=== PATIENT | male | born 1935 | race Caucasian/White ===

== ENCOUNTER 2017-11-09 17:15 | Inpatient (IN) ==
[2017-11-09 18:05] LABS: Basophils % 0.2 % (0.0-0.8); Eosinophils % 0.1 % (0.00-10.9); Hematocrit 30.3 VOL% (42.0-52.0); Hemoglobin 10.1 GM/DL (14.0-18.0); Immature Granulocytes % 0.8 %; Immature Granulocytes Absolute 0.17 #; Lymphocytes # 2.7 10*3/uL (1.4-4.0); Lymphocytes % 12.8 % (21.2-54.2); Mean Corpuscular HGB Conc 33.3 GM/DL (32-36); Mean Corpuscular Hemoglobin 30 PG (27-34); Mean Corpuscular Volume 89.1 FL (87-102); Monocytes # 1.5 10*3/uL (0.11-0.8); Monocytes % 6.9 % (1.7-12.7); Neutrophils # 16.8 10*3/uL (1.4-7.4); Neutrophils % 79.2 % (38.7-73.9); Platelet Count 294 T/CUMM (130-400); White Blood Count 21.1 T/CUMM (4-12)
[2017-11-09 18:15] LABS: PT Patient Result 10.6 SECS; Partial Thromboplastin Time 27.5 SECS (0-40)
[2017-11-09 18:34] LABS: Lymphocytes 8 % (20-55); Platelet Estimate Normal; Segmented Neutrophils 88 % (50-85); Total Cells Counted 100
[2017-11-09 18:35] LABS: Hypochromasia Slight
[2017-11-09 18:39] LABS: Alanine Aminotransferase 9 U/L (16-61); Albumin 2.7 G/DL (3.4-5.0); Alkaline Phosphatase 52 U/L (45-117); Aspartate Amino Transferase 6 U/L (0-37); Bilirubin,Total < 0.39 MG/DL (0.2-1.0); Blood Urea Nitrogen 25 MG/DL (7-18); Calcium 7.6 MG/DL (8.5-10.1); Glucose 179 MG/DL (74-106); Magnesium 2.1 MG/DL (1.8-2.4); Osmolality,Calculated 288.3 MOS/KG (273-304); Potassium 4.2 MMOL/L (3.5-5.1); Sodium 141 MMOL/L (136-145)
[2017-11-09] MEDS ORDERED: ONDANSETRON 4 MG/2 ML VIAL ONE (19:09)
[2017-11-09] MEDS ORDERED: ONDANSETRON 4 MG/2 ML VIAL IV STA (19:31)
[2017-11-09] MEDS ORDERED: ONDANSETRON 4 MG/2 ML VIAL IV PRN (19:34)
[2017-11-09] MEDS ORDERED: ALBUTEROL 2.5 MG/3 ML NEB RESP TX PRN (19:34)
[2017-11-09] MEDS ORDERED: SODIUM CHLORIDE 0.9% 1,000 ML IV PRN (19:34)
[2017-11-09] MEDS: PANTOPRAZOLE 40 MG VIAL IV SCH (22:01)
[2017-11-09 22:25] LABS: Hemoglobin 9.4 GM/DL (14.0-18.0)
[2017-11-09 23:51] LABS: Hemoglobin 8.8 GM/DL (14.0-18.0)
[2017-11-10] MEDS: ACETAMINOPHEN 325 MG TABLET PO PRN ×2 (04:53→18:22)
[2017-11-10 06:07] LABS: Basophils % 0.1 % (0.0-0.8); Hematocrit 23.6 VOL% (42.0-52.0); Immature Granulocytes % 0.7 %; Immature Granulocytes Absolute 0.09 #; Lymphocytes # 3.1 10*3/uL (1.4-4.0); Lymphocytes % 22.4 % (21.2-54.2); Mean Corpuscular HGB Conc 33.9 GM/DL (32-36); Mean Corpuscular Hemoglobin 30 PG (27-34); Mean Corpuscular Volume 88.4 FL (87-102); Mean Platelet Volume 11.3 FL (9.6-12.0); Monocytes # 1.3 10*3/uL (0.11-0.8); Monocytes % 9.7 % (1.7-12.7); Neutrophils # 9.3 10*3/uL (1.4-7.4); Neutrophils % 67.1 % (38.7-73.9); Platelet Count 238 T/CUMM (130-400); Red Blood Count 2.67 MC/CUMM (3.8-5.5); Red Cell Distribution Width 13.2 % (9.3-17.3); White Blood Count 13.8 T/CUMM (4-12)
[2017-11-10 07:02] LABS: Calcium 7.8 MG/DL (8.5-10.1); Osmolality,Calculated 291.1 MOS/KG (273-304)
[2017-11-10] MEDS ORDERED: SODIUM CHLORIDE 0.9% 1,000 ML IV ONE (08:12)
[2017-11-10 08:20] LABS: Hematocrit 22.6 VOL% (42.0-52.0); Hemoglobin 7.6 GM/DL (14.0-18.0)
[2017-11-10] MEDS: PANTOPRAZOLE 40 MG VIAL IV SCH ×2 (09:55→22:51)
[2017-11-10] MEDS ORDERED: ALUMINUM/MAGNES/SIMETH MAX STR 30 ML UDCUP PO ONE (10:07)
[2017-11-10] MEDS: TAMSULOSIN 0.4 MG CAPSULE PO SCH (13:02)
[2017-11-10] MEDS: amLODIPine 10 MG TABLET PO SCH (13:02)
[2017-11-10] MEDS: METOPROLOL TARTRATE 100 MG TABLET PO SCH ×2 (13:02→21:09)
[2017-11-10] MEDS: amLODIPine 5 MG TABLET PO SCH (16:50)
[2017-11-10 18:21] LABS: Apearance,Urine CLEAR (Clear); Bilirubin,Urine Negative (Negative); Blood, Urine Negative (Negative); Glucose,Urine (UA) Negative (Negative); Hyaline Casts,Urine 1 /LPF (0-3); Ketones,Urine Negative (Negative); Mucus,Urine Occasional /LPF (Occasional); Nitrite,Urine Negative (Negative); Protein,Urine Negative; RBC,Urine <1 /HPF (0-4); Squamous Epithelial Cell,Urine Occasional /HPF (0-10); Urine Color Yellow (Yellow); Urine Specific Gravity 1.014 (1.001-1.035); Urine Urobilinogen < 2.0 EU/DL (0.2-1.0); WBC,Urine 1 /HPF (0-6)
[2017-11-10 18:35] LABS: Hemoglobin 8.7 GM/DL (14.0-18.0)
[2017-11-10] MEDS: BRIMONIDINE/TIMOLOL OPH SOLN 5 ML BOTTLE RIGHT EYE SCH (21:09)
[2017-11-10] MEDS: ZALEPLON 5 MG CAPSULE PO SCH (21:09)
[2017-11-10] MEDS: PRAVASTATIN 20 MG TABLET PO SCH (21:09)
[2017-11-11 03:49] LABS: Calcium 7.6 MG/DL (8.5-10.1); Magnesium 2.1 MG/DL (1.8-2.4); Potassium 4.5 MMOL/L (3.5-5.1)
[2017-11-11 04:13] LABS: Basophils % 0.3 % (0.0-0.8); Eosinophils # 0.1 10*3/uL (0.0-0.87); Eosinophils % 0.7 % (0.00-10.9); Hematocrit 25.1 VOL% (42.0-52.0); Hemoglobin 8.2 GM/DL (14.0-18.0); Immature Granulocytes % 0.5 %; Immature Granulocytes Absolute 0.05 #; Lymphocytes # 2.5 10*3/uL (1.4-4.0); Lymphocytes % 24.4 % (21.2-54.2); Mean Corpuscular HGB Conc 32.7 GM/DL (32-36); Mean Corpuscular Hemoglobin 29 PG (27-34); Mean Corpuscular Volume 89.6 FL (87-102); Mean Platelet Volume 10.8 FL (9.6-12.0); Monocytes # 1.3 10*3/uL (0.11-0.8); Monocytes % 12.9 % (1.7-12.7); Neutrophils # 6.2 10*3/uL (1.4-7.4); Neutrophils % 61.2 % (38.7-73.9); Platelet Count 164 T/CUMM (130-400); White Blood Count 10.1 T/CUMM (4-12)
[2017-11-11] MEDS ORDERED: INFLUENZA VIRUS VACCINE 0.5 ML SYRINGE IM ONE (07:00)
[2017-11-11] MEDS: PANTOPRAZOLE 40 MG VIAL IV SCH (09:12)
[2017-11-11] MEDS: TAMSULOSIN 0.4 MG CAPSULE PO SCH (09:16)
[2017-11-11] MEDS: BRIMONIDINE/TIMOLOL OPH SOLN 5 ML BOTTLE RIGHT EYE SCH ×2 (09:16→21:40)
[2017-11-11] MEDS: METOPROLOL TARTRATE 100 MG TABLET PO SCH ×2 (09:16→21:40)
[2017-11-11] MEDS: amLODIPine 10 MG TABLET PO SCH (09:17)
[2017-11-11] MEDS ORDERED: MIDAZOLAM 2 MG/2 ML VIAL ONE (10:50)
[2017-11-11] MEDS ORDERED: fentaNYL 100 MCG/2 ML VIAL ONE (10:50)
[2017-11-11] MEDS ORDERED: SEVOFLURANE 1 UNIT/15 MINUTE INH ONE (10:56)
[2017-11-11] MEDS ORDERED: SUCCINYLCHOLINE 200 MG/10 ML VIAL ONE (10:56)
[2017-11-11] MEDS ORDERED: PROPOFOL 200 MG/20 ML VIAL IV ONE (10:56)
[2017-11-11] MEDS ORDERED: GLUCAGON 1 MG VIAL IM PRN (11:01)
[2017-11-11] MEDS ORDERED: DEXTROSE 50% 25 GM/50 ML VIAL IV PRN (11:01)
[2017-11-11] MEDS: BISACODYL 5 MG TABLET PO SCH ×2 (12:08→18:23)
[2017-11-11] MEDS ORDERED: PHENOL 1.4% THROAT SPRAY 177 ML BOTTLE PO PRN (14:31)
[2017-11-11] MEDS: amLODIPine 5 MG TABLET PO SCH (16:12)
[2017-11-11] MEDS ORDERED: POLYETHYLENE GLYCOL POWDER 255 GM BOTTLE PO ONE (18:00)
[2017-11-11] MEDS ORDERED: METOPROLOL TARTRATE 5 MG/5 ML VIAL IV ONE (20:11)
[2017-11-11] MEDS ORDERED: MAGNESIUM CITRATE 300 ML BOTTLE PO ONE (21:00)
[2017-11-11] MEDS: PRAVASTATIN 20 MG TABLET PO SCH (21:40)
[2017-11-11] MEDS: ZALEPLON 5 MG CAPSULE PO SCH (21:40)
[2017-11-12] MEDS: BISACODYL 5 MG TABLET PO SCH (03:59)
[2017-11-12] MEDS ORDERED: BISACODYL 5 MG TABLET PO SCH (04:00)
[2017-11-12 08:42] LABS: Calcium 8.5 MG/DL (8.5-10.1); Magnesium 2.3 MG/DL (1.8-2.4); Osmolality,Calculated 286.8 MOS/KG (273-304); Potassium 3.8 MMOL/L (3.5-5.1)
[2017-11-12] MEDS ORDERED: PROPOFOL 200 MG/20 ML VIAL IV ONE (10:05)
[2017-11-12] MEDS ORDERED: LIDOCAINE 2% 5 ML VIAL ONE (10:05)
[2017-11-12] MEDS: TAMSULOSIN 0.4 MG CAPSULE PO SCH (10:35)
[2017-11-12] MEDS: amLODIPine 10 MG TABLET PO SCH (10:35)
[2017-11-12] MEDS: BRIMONIDINE/TIMOLOL OPH SOLN 5 ML BOTTLE RIGHT EYE SCH ×2 (10:35→21:52)
[2017-11-12] MEDS: METOPROLOL TARTRATE 100 MG TABLET PO SCH ×2 (10:35→21:50)
[2017-11-12 15:05] LABS: Hemoglobin 9.7 GM/DL (14.0-18.0)
[2017-11-12] MEDS: PANTOPRAZOLE 40 MG TABLET PO SCH (15:20)
[2017-11-12] MEDS: amLODIPine 5 MG TABLET PO SCH (15:48)
[2017-11-12] MEDS: ACETAMINOPHEN 325 MG TABLET PO PRN (18:34)
[2017-11-12] MEDS: PRAVASTATIN 20 MG TABLET PO SCH (21:50)
[2017-11-12] MEDS: ZALEPLON 5 MG CAPSULE PO SCH (21:50)
[2017-11-12] MEDS: AMOXICILLIN 500 MG CAPSULE PO SCH (21:50)
[2017-11-12] MEDS: CLARITHROMYCIN 500 MG TABLET PO SCH (21:50)
[2017-11-13 04:29] LABS: Basophils % 0.3 % (0.0-0.8); Eosinophils # 0.1 10*3/uL (0.0-0.87); Eosinophils % 1.2 % (0.00-10.9); Hematocrit 24.5 VOL% (42.0-52.0); Hemoglobin 8.4 GM/DL (14.0-18.0); Immature Granulocytes % 0.5 %; Immature Granulocytes Absolute 0.04 #; Lymphocytes # 1.4 10*3/uL (1.4-4.0); Lymphocytes % 19.1 % (21.2-54.2); Mean Corpuscular HGB Conc 34.3 GM/DL (32-36); Mean Corpuscular Hemoglobin 30 PG (27-34); Mean Corpuscular Volume 88.4 FL (87-102); Mean Platelet Volume 10.9 FL (9.6-12.0); Monocytes % 13.4 % (1.7-12.7); Neutrophils # 4.9 10*3/uL (1.4-7.4); Neutrophils % 65.5 % (38.7-73.9); Platelet Count 184 T/CUMM (130-400); Red Blood Count 2.77 MC/CUMM (3.8-5.5); Red Cell Distribution Width 14.2 % (9.3-17.3); White Blood Count 7.5 T/CUMM (4-12)
[2017-11-13] MEDS ORDERED: SODIUM CHLORIDE 0.9% 1,000 ML IV PRN ×2 (07:14→08:11)
[2017-11-13] MEDS ORDERED: FUROSEMIDE 20 MG/2 ML VIAL IV PRN (07:14)
[2017-11-13] MEDS: CLARITHROMYCIN 500 MG TABLET PO SCH ×2 (09:26→20:14)
[2017-11-13] MEDS: AMOXICILLIN 500 MG CAPSULE PO SCH ×2 (09:26→20:14)
[2017-11-13] MEDS: METOPROLOL TARTRATE 100 MG TABLET PO SCH ×2 (09:26→20:14)
[2017-11-13] MEDS: amLODIPine 10 MG TABLET PO SCH (09:27)
[2017-11-13] MEDS: PANTOPRAZOLE 40 MG TABLET PO SCH (09:27)
[2017-11-13] MEDS: TAMSULOSIN 0.4 MG CAPSULE PO SCH (09:27)
[2017-11-13] MEDS: BRIMONIDINE/TIMOLOL OPH SOLN 5 ML BOTTLE RIGHT EYE SCH ×2 (09:27→20:16)
[2017-11-13] MEDS: amLODIPine 5 MG TABLET PO SCH (15:49)
[2017-11-13 19:07] LABS: Hematocrit 34.9 VOL% (42.0-52.0); Hemoglobin 11.3 GM/DL (14.0-18.0)
[2017-11-13] MEDS: ZALEPLON 5 MG CAPSULE PO SCH (20:13)
[2017-11-13] MEDS: PRAVASTATIN 20 MG TABLET PO SCH (20:14)
[2017-11-14 06:21] LABS: Basophils % 0.1 % (0.0-0.8); Eosinophils # 0.1 10*3/uL (0.0-0.87); Eosinophils % 1.7 % (0.00-10.9); Hematocrit 31.1 VOL% (42.0-52.0); Hemoglobin 10.4 GM/DL (14.0-18.0); Immature Granulocytes % 0.4 %; Immature Granulocytes Absolute 0.03 #; Lymphocytes # 1.4 10*3/uL (1.4-4.0); Lymphocytes % 18.4 % (21.2-54.2); Mean Corpuscular HGB Conc 33.4 GM/DL (32-36); Mean Corpuscular Hemoglobin 29 PG (27-34); Mean Corpuscular Volume 86.9 FL (87-102); Mean Platelet Volume 11.1 FL (9.6-12.0); Neutrophils % 66.4 % (38.7-73.9); Platelet Count 212 T/CUMM (130-400); Red Blood Count 3.58 MC/CUMM (3.8-5.5); Red Cell Distribution Width 14.6 % (9.3-17.3); White Blood Count 7.5 T/CUMM (4-12)
[2017-11-14] MEDS: METOPROLOL TARTRATE 100 MG TABLET PO SCH (08:56)
[2017-11-14] MEDS: amLODIPine 10 MG TABLET PO SCH (08:56)
[2017-11-14] MEDS: CLARITHROMYCIN 500 MG TABLET PO SCH (08:56)
[2017-11-14] MEDS: TAMSULOSIN 0.4 MG CAPSULE PO SCH (08:56)
[2017-11-14] MEDS: BRIMONIDINE/TIMOLOL OPH SOLN 5 ML BOTTLE RIGHT EYE SCH (08:56)
[2017-11-14] MEDS: PANTOPRAZOLE 40 MG TABLET PO SCH (08:56)
[2017-11-14] MEDS: AMOXICILLIN 500 MG CAPSULE PO SCH (08:56)
[2017-11-14 12:29] VITALS: BP 122/56
== END 2017-11-14 12:55 | disposition home or self-care (01) | DRG 378 ==
LOC: EDUNIT# → EDBD → N.ED 17:15 → N.EDINP 19:34 → SUATTDRO 19:34 → N.CC 20:26 → N.2E 11-10 12:09
PROVIDERS: ADMIT Internal Medicine; ATTEND Internal Medicine